=== PATIENT | male | born 2000 | race Caucasian/White ===

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

== ENCOUNTER 2019-06-07 18:04 | Emergency (ER) | payer SELFPAY ==
[2019-06-07] MEDS ORDERED: FAMOTIDINE INJ/PF 20 MG/2 ML SDV IV ONE (19:40)
[2019-06-07] MEDS ORDERED: ONDANSETRON HCL INJ/PF 4 MG/2 ML SDV IV ONE (19:41)
[2019-06-07] MEDS ORDERED: NORMAL SALINE 1000 ML 1,000 ML IV ONE (19:41)
--- NOTE | 2019-06-07 19:43 | ER Document Report ---
ED Medical Screen (RME) - General Chief Complaint: Nausea/Vomiting/Diarrhea Stated Complaint: DIARRHEA/VOMITING Time Seen by Provider: 06/07/19 19:38 Mode of Arrival: Ambulatory Information source: Patient Notes: Patient is an otherwise healthy 18-year-old male presented to emergency department with chief complaint of vomiting and diarrhea. Patient reports he ate a bad chicken sandwich yesterday at a fast food restaurant and began having nausea and vomiting immediately afterwards. Patient reports cramping in his abdomen with nausea today. Exam: Abdomen soft, nontender with no guarding and no rebound. I have greeted and performed a rapid initial assessment of this patient. A comprehensive ED assessment and evaluation of the patient, analysis of test results and completion of the medical decision making process will be conducted by additional ED providers. I have specifically instructed the patient or family members with the patient to immediately return to any nursing staff should anything change in the patient's condition or with their chief complaint. This medical record was dictated with voice recognizing software. There may be grammatical, syntax errors that are unintended. TRAVEL OUTSIDE OF THE [place] IN LAST 30 DAYS: No - Related Data Allergies/Adverse Reactions: No Known Allergies Allergy (Verified 06/07/19 18:06) Past Medical History Pulmonary Medical History: Reports: Hx Asthma Renal/ Medical History: Denies: Hx Peritoneal Dialysis Psychiatric Medical History: Reports: Hx Attention Deficit Hyperactivity Disorder, Hx Bipolar Disorder, Hx Post Traumatic Stress Disorder, Hx Schizophrenia Past Surgical History: Reports: Hx Genitourinary Surgery - circumscised - Immunizations Immunizations up to date: Yes Hx Diphtheria, Pertussis, Tetanus Vaccination: Yes Physical Exam - Vital signs Vitals: Temp Pulse Resp BP Pulse Ox 98.7 F 116 H 16 105/58 L 95 06/07/19 18:09 06/07/19 18:09 06/07/19 18:09 06/07/19 18:09 06/07/19 18:09 Course - Vital Signs Vital signs: Temp Pulse Resp BP Pulse Ox 98.7 F 116 H 16 105/58 L 95 06/07/19 18:09 06/07/19 18:09 06/07/19 18:09 06/07/19 18:09 06/07/19 18:09
--- NOTE | 2019-06-07 21:47 | ER Document Report ---
ED GI/ - General Chief Complaint: Nausea/Vomiting/Diarrhea Stated Complaint: DIARRHEA/VOMITING Time Seen by Provider: 06/07/19 19:38 Mode of Arrival: Ambulatory Notes: Patient is a 18-year-old male that comes to the emergency department for chief complaint of vomiting and diarrhea. He states that after he ate some chicken at a fast food restaurant shortly after this he felt cramping, he vomited, he states that today mainly he had diarrhea with 6 episodes. He has not vomited recently. He has been drinking and eating since this afternoon. He states he has not had a episode of diarrhea for the past several hours as well. He denies hematemesis or hematochezia. He denies fever or chills. He denies any current symptoms and states he feels much better after getting IV fluids in triage. He denies any surgeries. Past medical history of asthma, bipolar/depression. Mother at bedside. TRAVEL OUTSIDE OF THE [place] IN LAST 30 DAYS: No - Related Data Allergies/Adverse Reactions: No Known Allergies Allergy (Verified 06/07/19 18:06) Past Medical History - General Information source: Patient - Social History Smoking Status: Current Every Day Smoker Chew tobacco use (# tins/day): No Frequency of alcohol use: Occasional Drug Abuse: None Family History: Reviewed & Not Pertinent, Other - bipolar Patient has suicidal ideation: No Patient has homicidal ideation: No Pulmonary Medical History: Reports: Hx Asthma Renal/ Medical History: Denies: Hx Peritoneal Dialysis Psychiatric Medical History: Reports: Hx Attention Deficit Hyperactivity Disorder, Hx Bipolar Disorder, Hx Post Traumatic Stress Disorder, Hx Schizophrenia Past Surgical History: Reports: Hx Genitourinary Surgery - circumscised - Immunizations Immunizations up to date: Yes Hx Diphtheria, Pertussis, Tetanus Vaccination: Yes Hx Pneumococcal Vaccination: 09/28/00 Review of Systems - Review of Systems Constitutional: No symptoms reported EENT: No symptoms reported Cardiovascular: No symptoms reported Respiratory: No symptoms reported Gastrointestinal: See HPI Genitourinary: No symptoms reported Male Genitourinary: No symptoms reported Musculoskeletal: No symptoms reported Skin: No symptoms reported Hematologic/Lymphatic: No symptoms reported Neurological/Psychological: No symptoms reported Physical Exam - Vital signs Vitals: Temp Pulse Resp BP Pulse Ox 98.7 F 116 H 16 105/58 L 95 06/07/19 18:09 06/07/19 18:06/07/19 18:06/07/19 18:06/07/19 18:09 - Notes Notes: GENERAL: Alert, interacts well. No acute distress. Patient is thin. HEAD: Normocephalic, atraumatic. EYES: Pupils equal, round, and reactive to light. Extraocular movements intact. ENT: Oral mucosa moist, tongue midline. Oropharynx unremarkable. Airway patent. NECK: Full range of motion. Supple. Trachea midline. LUNGS: Clear to auscultation bilaterally, no wheezes, rales, or rhonchi. No respiratory distress. HEART: Regular rate and rhythm. No murmur ABDOMEN: Soft, non-tender. Non-distended. Bowel sounds present in all 4 quadrants. GENITOURINARY: Deferred EXTREMITIES: Moves all 4 extremities spontaneously. No edema, normal radial and dorsalis pedis pulses bilaterally. No cyanosis. BACK: no cervical, thoracic, lumbar midline tenderness. No saddle anesthesia, normal distal neurovascular exam. Moves all extremities in full range of motion. NEUROLOGICAL: Alert and oriented x3. Normal speech. Cranial nerves II through XII grossly intact. PSYCH: Normal affect, normal mood. SKIN: Warm, dry, normal turgor. No rashes or lesions noted. Course - Re-evaluation Re-evalutation: Patient smiling, talkative, well-appearing. His abdomen is soft and benign. He is not tachycardic on my exam after IV fluids. He has no current complaints. Symptoms have completely resolved. Suspect either ingested food toxin, possibly viral, very low suspicion of acute abdomen or concerning infection based on his evaluation. Discussed this with patient and mother. Provided with antinausea medication, Pepcid, work release for tomorrow. Discussed return precautions. They state satisfaction and agreement with plan. Stable at time of discharge. - Vital Signs Vital signs: Temp Pulse Resp BP Pulse Ox 98.1 F 58 L 16 98/52 L 98 06/07/19 22:11 06/07/19 22:11 06/07/19 18:06/07/19 22:11 06/07/19 22:11 Discharge - Discharge Clinical Impression: Nausea vomiting and diarrhea, Dehydration Condition: Stable Disposition: HOME, SELF-CARE Additional Instructions: Your symptoms are most suggestive of ingesting a food toxin which your body then got rid of. Your evaluation indicated dehydration but otherwise was reassuring. Start with bland foods and slowly progress. Drink plenty fluids. Take the Zofran as needed for nausea, the famotidine for recovery. Return for any concerning symptoms including severe abdominal pain, fever, uncontrolled vomiting, or any other concerning or worsening symptoms. Prescriptions: Famotidine [Pepcid 20 mg Tablet] 20 mg PO BID #14 tablet Ondansetron [Zofran Odt 4 mg Tablet] 1 - 2 tab PO Q4H PRN #15 tab.rapdis PRN Reason: For Nausea/Vomiting Forms: Return to Work
[2019-06-07 22:24] VITALS: BP 98/52
== END 2019-06-07 22:24 | disposition home or self-care (01) ==
LOC: ER 18:04
DX: R11.2 Nausea with vomiting, unspecified (principal); R19.7 Diarrhea, unspecified; E86.0 Dehydration; J45.909 Unspecified asthma, uncomplicated; F17.200 Nicotine dependence, unspecified, uncomplicated
CPT/HCPCS: J2405; J7030; S0028; 96361; 96374; 96375; 99283